=== PATIENT | male | born 1960 | race Caucasian/White ===

== ENCOUNTER 2023-06-08 05:25 | Inpatient (IN) | payer OTHER ==
[~2023-06-08] VITALS: Ht 182.9 cm; Wt 111.2 kg
[2023-06-08] MEDS ORDERED: SCOPOLAMINE HYDROBROMIDE 1 MG PATCH .72 H (TRANSDERM-SCOP) TD ONE ×2 (05:39→07:00)
[2023-06-08] MEDS ORDERED: ACETAMINOPHEN 500 MG TABLET ONE (05:39)
[2023-06-08] MEDS ORDERED: CELECOXIB 200 MG CAPSULE ONE (05:40)
[2023-06-08] MEDS ORDERED: GABAPENTIN 300 MG CAPSULE ONE (05:40)
[2023-06-08] MEDS ORDERED: oxyCODONE HCL 10 MG TAB.ER.12H PO ONE ×2 (05:41→07:00)
[2023-06-08] MEDS ORDERED: GABAPENTIN 300 MG CAPSULE PO ONE (07:00)
[2023-06-08] MEDS ORDERED: CEFAZOLIN SOD 2 GM in D5W 50 ML IV ONE (07:00)
[2023-06-08] MEDS ORDERED: CELECOXIB 200 MG CAPSULE PO ONE (07:00)
[2023-06-08] MEDS ORDERED: TRANEXAMIC ACID 1,000 MG/10 ML VIAL IV ONE (07:00)
[2023-06-08] MEDS ORDERED: ACETAMINOPHEN 500 MG TABLET PO ONE (07:00)
[2023-06-08] MEDS ORDERED: NS IRRIG SOLN 5000 ML IR ONE (07:16)
[2023-06-08] MEDS ORDERED: KETOROLAC TROMETHAMINE 30 MG VIAL ONE (07:16)
[2023-06-08] MEDS ORDERED: WATER FOR IRRIGATION,STERILE 1,000 ML IRRIG.SOLN IR ONE (07:16)
[2023-06-08] MEDS ORDERED: SEVOFLURANE 15 MIN GAS INH ONE (07:16)
[2023-06-08] MEDS ORDERED: LR 1,000 ML IV.SOLN IV ONE (07:16)
[2023-06-08] MEDS ORDERED: ONDANSETRON HCL 4 MG/2 ML VIAL ONE (07:16)
[2023-06-08] MEDS ORDERED: DEXAMETHASONE SOD PHOSPHATE 4 MG/ML VIAL ONE (07:16)
[2023-06-08] MEDS ORDERED: TRANEXAMIC ACID 1,000 MG/10 ML VIAL ONE (07:16)
[2023-06-08] MEDS ORDERED: ROPIVACAINE HCL/PF 5 MG/ML 0.5% 30 ML VIAL ONE (07:16)
[2023-06-08] MEDS ORDERED: NS IRRIG SOLN 1000 ML IR ONE (07:16)
[2023-06-08] MEDS ORDERED: BUPIVACAINE /DEX PF 0.75% SPINAL 2 ML AMP INJ ONE (07:16)
[2023-06-08] MEDS ORDERED: VANCOMYCIN HCL 1000 MG/VIAL IV ONE (07:16)
[2023-06-08] MEDS ORDERED: ACETAMINOPHEN I.V. 1000 MG 100 ML IV ONE (09:00)
[2023-06-08] MEDS ORDERED: HYDROmorphone 1 MG/ML INJ. CARTRIDGE IVP PRN ×3 (09:00→11:00)
[2023-06-08] MEDS ORDERED: IBUPROFEN 800 MG TABLET PO PRN (09:00)
[2023-06-08] MEDS ORDERED: NALOXONE HCL 0.4 MG/ML AMP (NARCAN) IVP PRN ×4 (09:00→09:45)
[2023-06-08] MEDS ORDERED: METOCLOPRAMIDE HCL 10 MG/2 ML VIAL IVP PRN ×2 (09:00→09:45)
[2023-06-08] MEDS ORDERED: ONDANSETRON HCL 4 MG/2 ML VIAL IVP PRN ×2 (09:00→11:45)
[2023-06-08] MEDS ORDERED: DIPHENHYDRAMINE HCL 25 MG CAPSULE PO PRN (09:45)
[2023-06-08] MEDS ORDERED: LACTULOSE 20 GM/30 ML UDC PO PRN (09:45)
[2023-06-08] MEDS ORDERED: BISACODYL 10 MG/SUPPOSITORY RC PRN (09:45)
[2023-06-08 10:45] VITALS: BP_SYST 123; PULSE 53; RESP 18; TEMP 97.3; O2SAT 98
[2023-06-08] MEDS ORDERED: LISI20TA30 PO ×2 (10:59→12:52)
[2023-06-08] MEDS ORDERED: LORATADINE 10 MG TABLET PO PRN (11:00)
[2023-06-08] MEDS ORDERED: oxyCODONE HCL 5 MG TABLET PO PRN ×2 (11:00)
[2023-06-08] MEDS ORDERED: traMADol HCL HCL 50 MG TABLET (ULTRAM) PO PRN (11:00)
[2023-06-08 11:12] VITALS: BP_SYST 123; PULSE 53; RESP 18; TEMP 97.8
[2023-06-08 11:19] VITALS: O2SAT 97
[2023-06-08] MEDS ORDERED: SENNOSIDES/DOCUSATE SODIUM 1 TAB TABLET(SENOKOT-S) PO ONE (11:30)
[2023-06-08] MEDS: ceFAZolin SODIUM 2 GM in D5W 50 ML IV SCH ×2 (13:20→18:43)
[2023-06-08] MEDS: ACETAMINOPHEN 500 MG TABLET PO SCH ×2 (13:21→21:38)
[2023-06-08] MEDS: KETOROLAC TROMETHAMINE 10 MG TABLET (TORADOL) PO SCH ×2 (13:21→21:37)
[2023-06-08] MEDS ORDERED: TAMSULOSIN HCL 0.4 MG CAP PO ONE (13:45)
[2023-06-08] MEDS: HYDROmorphone 1 MG/ML INJ. CARTRIDGE IVP PRN ×3 (14:29→23:17)
[2023-06-08 14:36] VITALS: BP_SYST 118; PULSE 60; RESP 18; TEMP 98; O2SAT 97
[2023-06-08 20:00] VITALS: BP_SYST 137; PULSE 64; RESP 18; TEMP 97.6; O2SAT 98
[2023-06-08] MEDS: SENNOSIDES/DOCUSATE SODIUM 1 TAB TABLET(SENOKOT-S) PO SCH (21:38)
[2023-06-09 00:07] VITALS: BP_SYST 114; PULSE 54; RESP 17; TEMP 96.5; O2SAT 95
[2023-06-09] MEDS: ceFAZolin SODIUM 2 GM in D5W 50 ML IV SCH (03:06)
[2023-06-09 06:10] LABS: BASOPHILS % (AUTO) 0.4 % (0.0-2.0); EOSINOPHILS # (AUTO) 0.1 K/uL (0.0-0.4); EOSINOPHILS % (AUTO) 2.2 % (0.0-4.0); HEMATOCRIT 40.4 % (36-54); HEMOGLOBIN 13.3 g/dL (14.0-18.0); LYMPHOCYTES # (AUTO) 1.5 K/uL (1.0-5.5); LYMPHOCYTES % (AUTO) 21.8 % (20.5-51.5); MEAN CORPUSCULAR HEMOGLOBIN 31 pg (27-31); MEAN CORPUSCULAR HGB CONC 33 % (32-36); MEAN CORPUSCULAR VOLUME 94 fL (79.0-98.0); MONOCYTES % (AUTO) 14.7 % (1.7-9.3); NEUTROPHILS # (AUTO) 4.2 K/uL (1.8-7.7); NEUTROPHILS % (AUTO) 60.9 % (40.0-70.0); PLATELET COUNT (AUTO) 171 K/uL (130-430); RED BLOOD CELL COUNT(AUTO) 4.32 MIL/uL (4.2-6.2); RED CELL DISTRIBUTION WIDTH 13.7 % (9.0-15.0); WHITE BLOOD COUNT (AUTO) 6.9 K/uL (4.8-10.8)
[2023-06-09 06:38] LABS: ALBUMIN 2.9 g/dL (3.4-4.8); CALCIUM 8.8 mg/dL (8.4-11.0); CREATININE 0.91 mg/dL (0.55-1.30); POTASSIUM 4.3 mmol/L (3.5-5.1); TOTAL BILIRUBIN 0.6 mg/dL (0.0-1.0); TOTAL PROTEIN, SERUM 5.5 g/dL (6.4-8.3)
[2023-06-09] MEDS: KETOROLAC TROMETHAMINE 10 MG TABLET (TORADOL) PO SCH (06:54)
[2023-06-09 08:00] VITALS: O2SAT 96
[2023-06-09 08:33] VITALS: BP_SYST 122; PULSE 61; RESP 16; TEMP 98.1; O2SAT 96
[2023-06-09] MEDS ORDERED: DECADRON 4 MG TABLET PO SCH (09:00)
[2023-06-09] MEDS ORDERED: ASPIRIN 81 MG TAB.CHEW PO SCH (09:00)
[2023-06-09] MEDS ORDERED: TAMSULOSIN HCL 0.4 MG CAP PO SCH (09:00)
[2023-06-09] MEDS: SENNOSIDES/DOCUSATE SODIUM 1 TAB TABLET(SENOKOT-S) PO SCH (09:37)
[2023-06-09 10:21] VITALS: BP_SYST 118; PULSE 67; RESP 16; TEMP 98; O2SAT 96
[2023-06-09] MEDS ORDERED: CELECOXIB 200 MG CAPSULE PO SCH (11:00)
== END 2023-06-09 11:25 | disposition home health service (06) | DRG 470 ==
LOC: SMU 05:25
PROVIDERS: ADMIT Student in an Organized Health Care Education/Training Program; ATTEND Student in an Organized Health Care Education/Training Program
PROC: 0SRD0J9 Replacement of Left Knee Joint with Synthetic Substitute, Cemented, Open Approach (ICD-10-PCS; principal; 2023-06-08 07:16)
DX: M17.12 Unilateral primary osteoarthritis, left knee (principal)
CPT/HCPCS: 36415; 73560-TC; 80053; 85025; 87081; 88305; 88311; 96379; 97110-GP; 97116-GP; 97163-GP; 97530-GP; J0131; J0690; J1100; J1170; J1885; J2405; J3370; J3490; J7060; J7120; J8540